=== PATIENT | female | born 1975 | race Caucasian/White ===

== ENCOUNTER 2022-04-30 14:34 | Emergency (ER) | payer OTHER ==
[~2022-04-30] VITALS: Ht 158 cm; Wt 59.5 kg
[2022-04-30 14:36] VITALS: BP 107/67
[2022-04-30] MEDS ORDERED: ACETAMINOPHEN EXTRA STRENGTH 500 MG TAB ONE (14:44)
[2022-04-30] MEDS ORDERED: ACETAMINOPHEN EXTRA STRENGTH 500 MG TAB PO ONE (14:45)
[2022-04-30] MEDS ORDERED: KETOROLAC 30 MG/ML VIAL IM ONE (15:05)
[2022-04-30] MEDS ORDERED: BENZ-300 PO (15:53)
[2022-04-30] MEDS ORDERED: PROM118S5 PO (15:53)
[2022-04-30] MEDS ORDERED: IBUP-2213 PO (15:53)
== END 2022-04-30 15:59 | disposition home or self-care (01) ==
LOC: MED 14:34
DX: U07.1 COVID-19 (principal); B34.9 Viral infection, unspecified; Z79.899 Other long term (current) drug therapy
CPT/HCPCS: 87426; 87804; 96372; 99283; J1885

== ENCOUNTER 2022-09-30 19:02 | Emergency (ER) | payer OTHER ==
[~2022-09-30] VITALS: Ht 157.5 cm; Wt 58.1 kg
[~2022-09-30 19:02] MED LIST: BENZ-300 PO; IBUP-2213 PO; PROM118S5 PO
[2022-09-30 19:35] VITALS: BP 114/77
--- NOTE | 2022-09-30 19:41 | NUR ---
TO LOBBY FOLLOWING TRIAGE
--- NOTE | 2022-09-30 21:30 | NUR ---
47YR OLD FEMALE BIB SELF C/O HEADACHE AND EAR PAIN X2 WEEKS. DENIES FEVER N/V/D. DENIES ANY RECENT UPPER RESP ILLNESS. PT IS A&OX4. SKIN WARM AND DRY. NKDA NO MED HX
[2022-09-30 21:35] VITALS: BP 114/77
--- NOTE | 2022-09-30 21:35 | NUR ---
Patient discharged with v/s stable. Written and verbal after care instructions given and explained. Patient verbalized understanding. Ambulatory with steady gait. All questions addressed prior to discharge. Advised to follow up with PMD.
== END 2022-09-30 21:35 | disposition home or self-care (01) ==
LOC: MED 19:02
DX: M54.50 Low back pain, unspecified (principal); R51.9 Headache, unspecified; Z79.899 Other long term (current) drug therapy
CPT/HCPCS: 99281